=== PATIENT | male | born 1950 | race Caucasian/White ===

== ENCOUNTER 2018-12-01 09:00 | Outpatient (CLI) | payer OTHER | END 2018-12-01 09:13 | disposition home or self-care (01) | LOC: MRI 09:00 | DX: M47.12 Other spondylosis with myelopathy, cervical region (principal); M25.08 Hemarthrosis, other specified site | CPT/HCPCS: 70551; 72141 ==

== ENCOUNTER 2018-12-01 12:44 | Outpatient (CLI) | payer OTHER | END 2018-12-01 12:57 | disposition home or self-care (01) | LOC: LAB 12:44 | DX: M25.00 Hemarthrosis, unspecified joint (principal) ==

== ENCOUNTER 2020-04-25 08:18 | Outpatient (CLI) | payer OTHER | END 2020-04-25 08:28 | disposition home or self-care (01) | LOC: EDBD 08:18 → RAD 08:18 → MAMO-SONO 08:30 | PROVIDERS: ATTEND Urology | DX: N20.0 Calculus of kidney (principal) ==

== ENCOUNTER → 2020-04-25 09:41 | Outpatient (CLI) | payer OTHER | END | disposition home or self-care (01) | LOC: LAB 09:41 → EDBD 09:41 | PROVIDERS: ATTEND Urology | DX: R35.0 Frequency of micturition (principal) ==

== ENCOUNTER 2020-05-04 08:37 | Outpatient (CLI) | payer OTHER | END 2020-05-04 15:00 | disposition home or self-care (01) | LOC: LAB 08:37 | PROVIDERS: ATTEND Urology | DX: N20.0 Calculus of kidney (principal) ==

== ENCOUNTER → 2020-05-07 07:09 | Outpatient (CLI) | payer OTHER | END | disposition home or self-care (01) | LOC: LAB 07:09 | PROVIDERS: ATTEND Urology | DX: N20.0 Calculus of kidney (principal) ==

== ENCOUNTER 2020-05-08 09:27 | Outpatient (CLI) | payer OTHER | END 2020-05-08 09:28 | disposition home or self-care (01) | LOC: LAB 09:27 | PROVIDERS: ATTEND Urology | DX: N20.0 Calculus of kidney (principal) ==

== ENCOUNTER 2021-02-06 12:00 | Outpatient (CLI) | payer OTHER | END 2021-02-06 12:09 | disposition home or self-care (01) | LOC: RAD 12:00 | PROVIDERS: ATTEND Internal Medicine Cardiovascular Disease | DX: M50.323 Other cervical disc degeneration at C6-C7 level (principal); M12.88 Other specific arthropathies, not elsewhere classified, other specified site ==

== ENCOUNTER 2021-09-17 07:59 | Outpatient (CLI) | payer OTHER | END 2021-09-17 08:11 | disposition home or self-care (01) | LOC: TOM 07:59 | PROVIDERS: ATTEND Psychiatry & Neurology Clinical Neurophysiology | DX: M54.12 Radiculopathy, cervical region (principal) | CPT/HCPCS: 72141 ==

== ENCOUNTER 2021-09-19 09:13 | Emergency (ER) | payer OTHER ==
[~2021-09-19] VITALS: Ht 175.3 cm; Wt 87.1 kg
[2021-09-19] MEDS ORDERED: SULINDAC200 MG PO (09:33)
[2021-09-19] MEDS ORDERED: BACLOFEN10 MG PO (09:33)
== END 2021-09-19 13:29 | disposition home or self-care (01) ==
LOC: ER 09:13
DX: N23 Unspecified renal colic (principal); R31.0 Gross hematuria; K57.30 Diverticulosis of large intestine without perforation or abscess without bleeding

== ENCOUNTER 2021-10-21 08:45 | Outpatient (CLI) | payer OTHER ==
[~2021-10-21 08:45] MED LIST: BACLOFEN10 MG PO; SULINDAC200 MG PO
== END 2021-10-21 08:53 | disposition home or self-care (01) ==
LOC: TOM 08:45
DX: K57.90 Diverticulosis of intestine, part unspecified, without perforation or abscess without bleeding (principal); R31.0 Gross hematuria

== ENCOUNTER 2021-12-23 08:17 | Outpatient (CLI) | payer OTHER | END 2021-12-23 08:20 | disposition home or self-care (01) | LOC: TOM 08:17 | PROVIDERS: ATTEND Internal Medicine Cardiovascular Disease | DX: R41.2 Retrograde amnesia (principal); G30.9 Alzheimer's disease, unspecified ==

== ENCOUNTER 2023-09-28 12:18 | Outpatient (CLI) | payer OTHER | END 2023-09-28 12:34 | disposition home or self-care (01) | LOC: TOM 12:18 | PROVIDERS: ATTEND Internal Medicine Cardiovascular Disease | DX: R41.2 Retrograde amnesia (principal) ==

== ENCOUNTER 2025-02-15 07:42 | Outpatient (CLI) | payer OTHER | END 2025-02-15 07:45 | disposition home or self-care (01) | LOC: TOM 07:42 | DX: R63.4 Abnormal weight loss (principal); K57.30 Diverticulosis of large intestine without perforation or abscess without bleeding; N20.0 Calculus of kidney; K44.9 Diaphragmatic hernia without obstruction or gangrene ==